=== PATIENT | female | born 2000 | race Hispanic/Latino ===

== ENCOUNTER 2023-10-08 05:23 | Inpatient (IN) | payer MEDICAID, SELFPAY ==
[2023-10-07 11:19] LABS: Basophils # (Auto) 0.1 Thou/mm3 (0.0-0.2); Basophils % (Auto) 1 % (0-2.5); Eosinophils # (Auto) 0.2 Thou/mm3 (0.0-0.5); Eosinophils % (Auto) 1 % (0-10); Hematocrit 34.7 % (36.0-46.0); Immature Granulocytes % (Auto) 1 % (0-0); Immature Granulocytes Auto 0.08 Thou/mm3 (0.00-0.00); Lymphocytes # (Auto) 1.9 Thou/mm3 (1.0-4.8); Lymphocytes % (Auto) 17 % (10-50); Mean Corpuscular HGB Conc 31.7 g/dl (31.0-37.0); Mean Corpuscular Hemoglobin 24.8 pg (25.0-35.0); Mean Corpuscular Volume 78 fL (80-100); Monocytes # (Auto) 0.6 Thou/mm3 (0.0-0.8); Monocytes % (Auto) 5 % (0-12); Neutrophils # (Auto) 8.3 Thou/mm3 (1.8-7.7); Neutrophils % (Auto) 75 % (37-80); Nucleated Red Blood Cell % 0 /100 WBC (0); Platelet Count 292 Thou/mm3 (140-440); RDW Standard Deviation 42.9 fL (36.4-46.3); Red Blood Count 4.44 Miln/mm3 (4.00-5.20)
[2023-10-07 11:47] LABS: Anion Gap 6 (7-16); BUN/Creatinine Ratio 13 Ratio (12-20); Blood Urea Nitrogen 8 mg/dL (9-23); Calcium 9.6 mg/dL (8.3-10.6); Carbon Dioxide 23.6 mMol/L (20.0-31.0); Chloride 105 mMol/L (98-107); Creatinine (Component) 0.6 mg/dL (0.6-1.3); Glucose 92 mg/dL (74-106); Osmolality,Calculated 268 (275-295); Potassium 4.5 mMol/L (3.4-5.1); Sodium 135 mMol/L (136-145); eGFR > 60 See Note
[2023-10-08] VITALS (14 sets, daily range): BP systolic 115–151; BP diastolic 65–96; PULSE 69–94; RESP 15–19; TEMP 36.6–37.1; O2SAT 96–99; BMI 43.9
[2023-10-08] MEDS: RINGERS LACTATED 1000 ML 1,000 ML 125 ML IV ×2 (06:03→07:11)
--- NOTE | 2023-10-08 07:06 | PD.LDHP ---
Documentation for date of: 10/08/23 OB Labor/Induct. HPI History of Present Illness : 2 Para: 0 Date of last menstrual period: 01/08/23 Gestational Age (weeks): 39 Gestational Age (days): 0 Gestational age based on last menstrual period: 39 History of present illness: 23 yo who comes at 39 wk for primary section due to severe hip dysplasia unable to abduct hips. PNC remarkable for obesity, NIPT low risk, normal AFP, normal anatomy, glucola and 3rd trim labs Denies bleeding, or decreased movements History of Present Adequate Care: Yes Labs Labs: Negative: Hepatitis B, HIV, Chlamydia, Gonorrhea and Group Beta Strep Review of Systems Allergic/Immunologic Comments: Denies Past Medical History Surgical History OTHER SURGICAL HX: Denies Past Medical History Comments PMH COMMENT: Denies Meds Home Medications and Allergies Home Medications ?Medication ?Instructions ?Recorded ?Confirmed ?Type ferrous sulfate 325 mg (65 mg 325 mg PO QDAY 08/22/22 10/08/23 History iron) tablet vitamins no.170-iron 1 tab PO DAILY 08/22/22 10/08/23 History fumarate 27 mg-folic acid 1 mg tablet (DermacinRx Prenatrix) Allergies Allergy/AdvReac Type Severity Reaction Status Date / Time No Known Allergies Allergy Verified 10/08/23 05:56 OB Exam Physical Exam Vital signs: Pulse BP 78 125/69 10/08/23 06:58 10/08/23 06:58 Detailed Labor and Delivery Exam Baseline heart rate: 140 monitor accelerations: 15x15 monitor decelerations: None computer terminal operator variability: Moderate (11-25) Contraction frequency (min): 0 OB Results Labs 10/07/23 10:51 10/07/23 10:51 Labs: Short CBC 10/07/23 Range/Units 10:51 WBC 11.0 (3.6-11.0) Thou/mm3 Hgb 11.0 L (12.0-16.0) g/dL Hct 34.7 L (36.0-46.0) % Plt Count 292 (140-440) Thou/mm3 BMP 10/07/23 10:51 Sodium 135 L Potassium 4.5 Chloride 105 Carbon Dioxide 23.6 BUN 8 L Creatinine 0.6 Glucose 92 Calcium 9.6 Impressions Impression: 23 yo at 39 wk Severe hip dysplasia unable to deliver vaginally. Obesity OB Assessment & Plan Additional Plan Additional Plan Comment: Admit to L&D Routine admission labs Patient is NPO, consent signed all questions answered
[2023-10-08] MEDS: FAMOTIDINE INJ 10 MG/ML VIAL 2 ML 20 MG IV (07:10)
[2023-10-08] MEDS: ceFAZolin/D5W 2 GM IV 2 GM/100 ML BAG IV (07:10)
[2023-10-08] MEDS: METOCLOPRAMIDE INJ 5 MG/ML VIAL 2 ML 10 MG IVP (07:10)
[2023-10-08 07:11] LABS: Basophils % (Auto) 0 % (0-2.5); Eosinophils # (Auto) 0.2 Thou/mm3 (0.0-0.5); Eosinophils % (Auto) 2 % (0-10); Hematocrit 32.4 % (36.0-46.0); Hemoglobin 10.3 g/dL (12.0-16.0); Immature Granulocytes % (Auto) 1 % (0-0); Immature Granulocytes Auto 0.08 Thou/mm3 (0.00-0.00); Lymphocytes % (Auto) 16 % (10-50); Mean Corpuscular HGB Conc 31.8 g/dl (31.0-37.0); Mean Corpuscular Hemoglobin 24.9 pg (25.0-35.0); Mean Corpuscular Volume 78 fL (80-100); Monocytes # (Auto) 0.7 Thou/mm3 (0.0-0.8); Monocytes % (Auto) 6 % (0-12); Neutrophils # (Auto) 9.5 Thou/mm3 (1.8-7.7); Neutrophils % (Auto) 76 % (37-80); Nucleated Red Blood Cell % 0 /100 WBC (0); Platelet Count 309 Thou/mm3 (140-440); RDW Standard Deviation 42.6 fL (36.4-46.3); Red Blood Count 4.14 Miln/mm3 (4.00-5.20); White Blood Count 12.5 Thou/mm3 (3.6-11.0)
[2023-10-08] MEDS: ceFAZolin/D5W 1 GM IVPB 1 GM/50 ML BAG IV (07:27)
[2023-10-08 07:36] LABS: Alanine Aminotransferase 36 U/L (10-49); Albumin, Serum 3.6 gm/dL (3.5-5.0); Albumin/Globulin Ratio 1.2 (1.2-2.2); Alkaline Phosphatase 261 U/L (46-116); Anion Gap 8 (7-16); Aspartate Amino Transferase 30 U/L (0-34); BUN/Creatinine Ratio 20 Ratio (12-20); Bilirubin,Total 0.4 mg/dL (0.3-1.2); Blood Urea Nitrogen 10 mg/dL (9-23); Calcium 9.1 mg/dL (8.3-10.6); Calcium (Corrected) 9.4 mg/dL (8.5-10.1); Carbon Dioxide 20.9 mMol/L (20.0-31.0); Chloride 107 mMol/L (98-107); Creatinine (Component) 0.5 mg/dL (0.6-1.3); Estimated Creatinine Clearance 232.6 mL/min (>60); Globulin 2.9 gm/dL (2.3-3.5); Glucose 99 mg/dL (74-106); Osmolality,Calculated 270 (275-295); Potassium 3.8 mMol/L (3.4-5.1); Sodium 136 mMol/L (136-145); Total Protein 6.5 gm/dL (5.7-8.2); Uric Acid 5.6 mg/dL (3.1-7.8); eGFR > 60 See Note
[2023-10-08 07:53] LABS: Syphilis Nonreactive (Nonreactive)
[2023-10-08 09:06] LABS: Fibrinogen 596 mg/dL (175-375); INR 0.9 (0.9-1.3); Partial Thromboplastin Time 25.1 Seconds (22.0-36.0); Prothrombin Time 10.1 Seconds (9.0-12.2)
--- NOTE | 2023-10-08 09:13 | OBDSUM_ITS ---
Data ([facility]) Data : 2 Para: 0 Term: 0 : 0 : 1 Delivery Data ([facility]) Labor Data ROM Date: 10/08/23 ROM Time: 08:04 Rupture Type: AROM Amniotic Fluid: Clear Delivery Data Labor Onset Stage 1 Date: 10/08/23 Labor Onset Stage 1 Time: 08:04 Labor Onset Stage 2 Date: 10/08/23 Labor Onset Stage 2 Time: 08:04 Delivery Date: 10/08/23 Delivery Time: 08:05 Placenta Delivery Date: 10/08/23 Placenta Delivery Time: 08:06 Delivered by: Erlin Lucas Delivery nurse: Sudha Cortez Other staff at delivery: Nursery Nurse Other staff at delivery: Samantha Felder Delivery Method Delivery: Delivery Type: Primary Anesthesia Type Primary Anesthesia: Spinal EBL Estimated blood loss (ml): 800 Data ([facility]) [place] Data Infant Gender: Female Infant Weight Grams: 3895 1 Minute Total: 9 5 Minute Total: 9
[2023-10-08] MEDS: DIPHENOXYLATE/ATROP SULF 1 TAB PO (09:17)
--- NOTE | 2023-10-08 09:59 | ESOP_ITS ---
Operative Note - WOMEN SPECIALIST Procedure Date of procedure: 10/08/23 Procedure Performed: Primary low transverse section Indication: IUP AT 39 WK Severe hip dysplasia unable to deliver vaginally Pre-Op diagnosis: IUP AT 39 WK Severe hip dysplasia unable to deliver vaginally Post-Op diagnosis: IUP AT 39 WK Severe hip dysplasia unable to deliver vaginally Viable female Uterine atony Anesthesia type: Spinal Procedure description: the patient was taken to the OR, where the patient was put under spinal anesthesia.? 3g if IV Ancef was given for infection prophylaxis.? She was prepped and draped in dorsal supine position.? ?A Pfannenstiel skin incision was made with a scalpel. Incision was carried down through the fascia with the Bovie Fascia and muscles were dissected with the bovie 1 g of TXA was given IV Peritoneum was? entered bluntly The uterine incision was performed and extended bluntly.? Baby was delivered from vertex presentation without any complications. ?Nose and mouth were suctioned on the operative field, cord was then clamped and cut.? The infant was handed off to the nurse.? Cord gases were obtained. ?IV oxytocin? was initiated to facilitate uterine contractions. Placenta was delivered intact with massage of the uterine fundus. The uterus was exteriorized.? The inside of the uterus was then cleaned with a lap sponge to ensure complete removal of the placental membranes.? Then the hysterotomy was repaired along the uterine incision with 0 Vicryl in a locked fashion and? then in a running fashion with the same suture. Atony was noted, 0.2mg IM of Methergine, 0.25mg of Hematabe IM were given, as well as 10u of intrauterine pitocin. The hysterotomy incision then had excellent hemostasis noted and became firm. The uterus was placed back in the abdomen, inspected and noted to be firm,? the uterine incision was reinspected with excellent hemostasis noted after [address] Fascia was closed with 0 Vicryl in a running fashion Subcutaneous tissue was closed with 0 plain gut Skin was close with 4-0 Monocryl Estimated blood loss (ml): 800 Findings: Uterine atony normal tubes and ovaries Complications: intraoperative hemorrhage Surgical staff Operation Date: 10/08/23 07:45 Case Staff CUSTOMER SERVICE SUPERVISOR: Ky Awan RN First Assistant: Vane Granado Diagnosis Problem List Completed Was Problem List Reviewed/Reconciled?: Yes
[2023-10-08] MEDS: KETOROLAC INJ 30 MG/ML VIAL IVP ×2 (11:42→20:24)
[2023-10-08 17:38] LABS: Basophils % (Auto) 0 % (0-2.5); Eosinophils # (Auto) 0.1 Thou/mm3 (0.0-0.5); Eosinophils % (Auto) 0 % (0-10); Hematocrit 29.7 % (36.0-46.0); Hemoglobin 9.5 g/dL (12.0-16.0); Immature Granulocytes % (Auto) 1 % (0-0); Immature Granulocytes Auto 0.08 Thou/mm3 (0.00-0.00); Lymphocytes # (Auto) 1.9 Thou/mm3 (1.0-4.8); Lymphocytes % (Auto) 12 % (10-50); Mean Corpuscular Hemoglobin 24.5 pg (25.0-35.0); Mean Corpuscular Volume 77 fL (80-100); Monocytes # (Auto) 0.7 Thou/mm3 (0.0-0.8); Monocytes % (Auto) 5 % (0-12); Neutrophils # (Auto) 12.7 Thou/mm3 (1.8-7.7); Neutrophils % (Auto) 82 % (37-80); Nucleated Red Blood Cell % 0 /100 WBC (0); Platelet Count 259 Thou/mm3 (140-440); RDW Standard Deviation 42.9 fL (36.4-46.3); Red Blood Count 3.87 Miln/mm3 (4.00-5.20); White Blood Count 15.6 Thou/mm3 (3.6-11.0)
[2023-10-08 21:47] LABS: Collection Type, Urine Clean Catch
[2023-10-08 22:00] LABS: Bilirubin,Urine Negative (Negative); Blood,Urine 1+ (Negative); Clarity,Urine Clear (Clear/Hazy); Color,Urine Lt-Yellow (Lt Yel-Yel); Glucose, Urine Negative (Negative); Ketones,Urine Negative (Negative); Leukocyte Esterase,Urine Negative (Negative); Nitrite,Urine Negative (Negative); Protein,Urine Negative (Neg - Trace); RBC,Urine 31 /hpf (0-3); Specific Gravity,Urine 1.012 (1.001-1.035); Squamous Epithelial Cell,Urine < 1 /hpf (0-5); Urobilinogen,Urine Negative mg/dL (0.0-1.0); WBC,Urine 1 /hpf (0-5)
[2023-10-09 00:12] VITALS: BP 120/76; PULSE 87; RESP 20; TEMP 36.8; O2SAT 99
[2023-10-09] MEDS: KETOROLAC INJ 30 MG/ML VIAL IVP (03:29)
[2023-10-09 04:14] VITALS: BP 112/77; PULSE 99; RESP 17; TEMP 37.2; O2SAT 97
--- NOTE | 2023-10-09 06:16 | PD.LDPPPRG ---
Subjective Subjective Interval history: Delivery type: Patient doing well this morning. No acute complaints. Tolerating p.o., no nausea or vomiting HTN/Pre-Eclampsia screen: No chest pain, shortness of breath, headache, visual changes, epigastric or right upper quadrant pain. Breast-feeding, lochia diminishing. Bowel: Flatus+ Exam Vital Signs Temp Pulse Resp BP Pulse Ox O2 Del Method 98.9 F 99 17 112/77 97 Room Air 10/09/23 04:14 10/09/23 04:14 10/09/23 04:14 10/09/23 04:14 10/09/23 04:14 10/09/23 04:14 Constitutional Constitutional: no acute distress Routine HEENT Exam Head: Present normocephalic and atraumatic Eye: Present EOMI and PERRL ENT: Present mucous membranes moist Routine Neck Exam Neck: Present supple and trachea midline Routine Respiratory Exam Respiratory: Present chest non-tender, lungs clear, normal breath sounds and no resp distress Routine Cardiovascular Exam Cardiovascular: Present RRR Routine Abdominal Exam Abdominal: Present soft and normoactive bowel sounds Routine Extremities Exam Extremities: Present full ROM Routine Skin Exam Skin: Present intact, dry and warm Routine Neurological Exam Neurological: Present alert, oriented X3 and CN II-XII intact Routine Psychiatric Exam Psychiatric: Present normal affect and normal thought process Objective Labs 10/08/23 16:55 10/08/23 06:26 Labs: Laboratory Results - last 24 hr 10/08/23 10/08/23 10/08/23 06:26 16:55 21:20 WBC 12.5 H 15.6 H RBC 4.14 3.87 L Hgb 10.3 L 9.5 L Hct 32.4 L 29.7 L MCV 78 L 77 L MCH 24.9 L 24.5 L MCHC 31.8 32.0 RDW Std Deviation 42.6 42.9 Plt Count 309 259 D Neut % (Auto) 76 82 H Lymph % (Auto) 16 12 [place] % (Auto) 6 5 Eos % (Auto) 2 0 Baso % (Auto) 0 0 Neut # (Auto) 9.5 H 12.7 H Lymph # (Auto) 2.0 1.9 [place] # (Auto) 0.7 0.7 Eos # (Auto) 0.2 0.1 Baso # (Auto) 0.0 0.0 Immature Gran # (Auto) 0.08 H 0.08 H Absolute Nucleated RBC 0.00 0.00 Immature Gran % 1 H 1 H Nucleated RBC % 0 0 PT 10.1 INR 0.9 APTT 25.1 Fibrinogen 596 H Sodium 136 Potassium 3.8 D Chloride 107 Carbon Dioxide 20.9 Anion Gap 8 BUN 10 Creatinine 0.5 L Estim Creat Clear Calc 232.6 eGFR > 60 BUN/Creatinine Ratio 20 Glucose 99 Calculated Osmolality 270 L Uric Acid 5.6 Calcium 9.1 Corrected Calcium 9.4 Total Bilirubin 0.4 AST 30 ALT 36 Alkaline Phosphatase 261 H Total Protein 6.5 Albumin 3.6 Globulin 2.9 Albumin/Globulin Ratio 1.2 Ur Collection Type Clean Catch Urine Color Lt-Yellow Urine Clarity Clear Urine pH 6.0 Ur Specific [place] 1.012 Urine Protein Negative Urine Glucose (UA) Negative Urine Ketones Negative Urine Blood 1+ A Urine Nitrite Negative Urine Bilirubin Negative Urine Urobilinogen (Auto) Negative Ur Leukocyte Esterase Negative Urine RBC 31 H Urine WBC 1 Ur Squamous Epith Cells < 1 Urine Bacteria None Syphilis Serology Nonreactive Assessment & Plan Problem List (1) delivery delivered: Status: Acute Assessment and plan: 1. Continue routine /post-op care 2. Labs reviewed, cbc appropriate 3. Remove dressing/[place] 4. Encourage to ambulate, shower 5. Encourage PO intake, breast feeding (2) Obesity, morbid, BMI 40.0-49.9: Status: Acute Assessment and plan: DVT prophylaxis Lovenox Time Spent With Patient Time: Total time spent is greater than 50% in coordination of care (as documented) at patient's floor/unit and/or counseling patient:
[2023-10-09 06:21] LABS: Basophils % (Auto) 0 % (0-2.5); Eosinophils # (Auto) 0.1 Thou/mm3 (0.0-0.5); Eosinophils % (Auto) 1 % (0-10); Hematocrit 28.9 % (36.0-46.0); Hemoglobin 9.2 g/dL (12.0-16.0); Immature Granulocytes % (Auto) 1 % (0-0); Immature Granulocytes Auto 0.13 Thou/mm3 (0.00-0.00); Lymphocytes % (Auto) 13 % (10-50); Mean Corpuscular HGB Conc 31.8 g/dl (31.0-37.0); Mean Corpuscular Hemoglobin 25.1 pg (25.0-35.0); Mean Corpuscular Volume 79 fL (80-100); Monocytes # (Auto) 0.8 Thou/mm3 (0.0-0.8); Monocytes % (Auto) 5 % (0-12); Neutrophils # (Auto) 11.8 Thou/mm3 (1.8-7.7); Neutrophils % (Auto) 80 % (37-80); Nucleated Red Blood Cell % 0 /100 WBC (0); Platelet Count 252 Thou/mm3 (140-440); RDW Standard Deviation 44.6 fL (36.4-46.3); Red Blood Count 3.67 Miln/mm3 (4.00-5.20); White Blood Count 14.8 Thou/mm3 (3.6-11.0)
[2023-10-09] MEDS: HYDROcodone/APAP 5/325 TABLET 1 TAB PO ×3 (08:10→22:42)
[2023-10-09] MEDS: ENOXAPARIN SOD INJ 40 MG/0.4 ML SYRINGE SC (08:11)
[2023-10-09 08:52] VITALS: BP 109/72; PULSE 100; RESP 16; TEMP 36.8; O2SAT 98
[2023-10-09] MEDS: IBUPROFEN TAB 400 MG TABLET 800 MG PO (12:10)
[2023-10-09 16:13] VITALS: BP 117/75; PULSE 98; RESP 16; TEMP 36.8; O2SAT 98
[2023-10-09 20:06] VITALS: BP 124/71; PULSE 106; RESP 18; TEMP 36.4; O2SAT 98
[2023-10-10] MEDS: IBUPROFEN TAB 400 MG TABLET 800 MG PO ×2 (01:35→09:36)
[2023-10-10 03:55] VITALS: BP 125/70; PULSE 95; RESP 17; TEMP 36.8; O2SAT 97
[2023-10-10] MEDS: HYDROcodone/APAP 5/325 TABLET 1 TAB PO (03:55)
[2023-10-10 08:37] VITALS: BP 127/82; PULSE 97; RESP 16; TEMP 37.1; O2SAT 97
[2023-10-10] MEDS: ENOXAPARIN SOD INJ 40 MG/0.4 ML SYRINGE SC (09:35)
--- NOTE | 2023-10-10 09:55 | ESDS_ITS ---
DS: Providers Provider Date of admission: 10/08/23 05:23 Primary care physician: George Silva MD Admitting Provider: Erlin Lucas MD Attending Provider on Admission: Toribio Albert MD Consults: 10/08/23 09:12 Referral Routine Comment: Attending Provider on DC: Toribio Albert MD Discharging Provider: Toribio Albert MD DS: Diagnosis Discharge Diagnosis (1) Obesity, morbid, BMI 40.0-49.9: Status: Acute (2) delivery delivered: Status: Acute Problem List Completed Was Problem List Reviewed/Reconciled?: Yes Summary/Hosp Course Brief History: 23 yo who comes at 39 wk for primary section due to severe hip dysplasia unable to abduct hips. PNC remarkable for obesity, NIPT low risk, normal AFP, normal anatomy, glucola and 3rd trim labs Denies bleeding, or decreased movements Peripartum Data Procedures: Procedures Operation Date: 10/08/23 07:45 Actual Procedure Side Surgeon p in OB Erlin Lucas MD Time Spent with Patient Time attestation: Total time spent providing and/or coordinating discharge services: Exam Vital Signs Temp Pulse Resp BP Pulse Ox O2 Del Method 98.7 F 97 16 127/82 97 Room Air 10/10/23 08:37 10/10/23 08:37 10/10/23 08:37 10/10/23 08:37 10/10/23 08:37 10/10/23 08:37 Discharge Plan Plan Patient Disposition: HOME (Self Care) Patient condition on transfer: Stable Prescriptions/Referrals Prescriptions/Med Rec: New hydrocodone-acetaminophen 5-325 mg Tablet 1 tab PO Q6H MDD 4 PRN (Reason: Patient rated pain 7 to 8) 5 Days Qty: 20 0RF ibuprofen 400 mg Tablet 800 mg PO Q8HR PRN (Reason: Pain Scale 4-6 (Moderate) 10 Days Qty: 30 0RF docusate sodium [Stool Softener] 100 mg capsule 100 mg PO BID 30 Days Qty: 60 0RF Continued ferrous sulfate 325 mg (65 mg iron) Tablet 325 mg PO QDAY DermacinRx Prenatrix 27 mg iron- 1 mg tablet 1 tab PO DAILY Patient Comments: TAKE ONE TABLET BY MOUTH EVERY DAY VITAMIN Referrals: Erlin Lucas MD [Physician] - George Silva MD [Primary Care Provider] - Patient/Caregiver Discharge Instructions Discharge Activity: activity as tolerated Education Materials: After Delivery [place] Concerns, After a , : Caring for Yourself, C Section Dc Print Language: Latvian Activity Restrictions/Additional Instructions: Please follow up with your ob doctor in 1 week. Call today to make a appointment. Stand Alone Forms: Patient Portal Info Letter, DC from Surgery Discharge Order Discharge Orders: Discharge (Routine); Ordered 10/10/23 Ordered By: Toribio Albert Planned Discharge Date 10/10/23
--- NOTE | 2023-10-10 09:55 | PD.LDPPPRG ---
Subjective Subjective Interval history: Delivery type: Patient doing well this morning. No acute complaints. Ambulating, tolerating p.o. and voiding without difficulty. HTN/Pre-Eclampsia screen: No chest pain, shortness of breath, headache, visual changes, epigastric or right upper quadrant pain. Breast-feeding, lochia diminishing. Bowel: Flatus+/ BM+ Exam Vital Signs Temp Pulse Resp BP Pulse Ox O2 Del Method 98.7 F 97 16 127/82 97 Room Air 10/10/23 08:37 10/10/23 08:37 10/10/23 08:37 10/10/23 08:37 10/10/23 08:37 10/10/23 08:37 Constitutional Constitutional: no acute distress Routine HEENT Exam Head: Present normocephalic and atraumatic Eye: Present EOMI and PERRL ENT: Present mucous membranes moist Routine Neck Exam Neck: Present supple and trachea midline Routine Respiratory Exam Respiratory: Present chest non-tender, lungs clear, normal breath sounds and no resp distress Routine Cardiovascular Exam Cardiovascular: Present RRR Routine Abdominal Exam Abdominal: Present soft and normoactive bowel sounds Routine Extremities Exam Extremities: Present full ROM Routine Skin Exam Skin: Present intact, dry and warm Routine Neurological Exam Neurological: Present alert, oriented X3 and CN II-XII intact Routine Psychiatric Exam Psychiatric: Present normal affect and normal thought process Objective Labs 10/09/23 06:00 10/08/23 06:26 Assessment & Plan Problem List (1) delivery delivered: Status: Acute Assessment and plan: PPD/POD#2 1. Continue routine care 2. Transition to PO meds. 3. Encourage to ambulate/ breast-feed 4. Anticipate discharge home today. (2) Obesity, morbid, BMI 40.0-49.9: Status: Acute Time Spent With Patient Time: Total time spent is greater than 50% in coordination of care (as documented) at patient's floor/unit and/or counseling patient:
== END 2023-10-10 12:35 | disposition home or self-care (01) | DRG 540 ==
LOC: S4SX 05:32 → S4NX 07:57
PROVIDERS: Admitting Provider Obstetrics & Gynecology; PCP Family Medicine; Visit Provider Obstetrics & Gynecology
PROC: 10D00Z1 Extraction of Products of Conception, Low, Open Approach (ICD-10-PCS; CPT 59514; principal; 2023-10-08 07:30)
DX: O99.891 Other specified diseases and conditions complicating pregnancy (principal); O99.214 Obesity complicating childbirth; Z37.0 Single live birth; Z3A.39 39 weeks gestation of pregnancy; O62.2 Other uterine inertia; E66.01 Morbid (severe) obesity due to excess calories
CPT/HCPCS: 36415; 59409; 80048; 80053; 81001; 84550; 85025; 85384; 85610; 85730; 86780; 86850; 86900; 86901; 94762; A4649; J0689; J1650; J1885; J2210; J2274; J2371; J2405; J2590; J2765; J3010; J3490; J7120; A9270